=== PATIENT | male | born 1985 | race Caucasian/White ===

== ENCOUNTER → 2021-07-19 | Outpatient (CLI) | payer SELFPAY ==
--- NOTE | 2021-07-19 13:00 | VAS_PTH ---
PATIENT: JOHNATHAN MCNAMARA LOC: [facility] U#:[id number] AGE/SX: 36/M ROOM: RE07/19/[address]: Dr. Bhargav De Santiago MD : 1985 BED: DIS: 07/19/2021 SPEC #: [id number] RECD: 07/19/21 13:42 STATUS: DOMENICO REEstela #: [id number] TIMA: 07/19/21 13:[address]: Bhargav De Santiago DEPT: SURGICAL PATHOLOGY RECD BY: Fatemeh Denise ENTERED: 07/20/21 08:43 SP TYPE: VAS OTHR DR: Dr. Howie Sandoval MD Tissues: A - Vas deferens, NOS B - Vas deferens, NOS Procedures: Surgery Specimen Level II HEADER OPERATION: Bilateral partial vasectomy PRE-OP DIAGNOSIS: Sterilization TISSUE SUBMITTED: A ? Right vas deferens, B ? Left vas deferens MICROSCOPIC DIAGNOSIS A. Right vas deferens, segmental vasectomy: Complete segment of vas deferens with no pathologic change. B. Left vas deferens, segmental vasectomy: Complete segment of vas deferens with no pathologic change. AM:matt 07/23/2021 MICROSCOPIC DESCRIPTION Slides are reviewed. GROSS DESCRIPTION A - Received is one container designated right vas deferens. The specimen consists of a tubular segment of bear soft tissue measuring 0.5 cm in length and 0.2 cm in diameter. The specimen is sectioned and submitted entirely in one cassette. B - Received is one container designated left vas deferens. The specimen consists of a tubular segment of bear soft tissue measuring 0.7 cm in length and 0.2 cm in diameter. The specimen is sectioned and submitted entirely in one cassette. / SJ:matt 07/20/21 TC:4 CPT: 02043 x2
== END | disposition home or self-care (01) ==
LOC: LABSPEC 13:53
PROVIDERS: PCP Family Medicine; Referring Provider Surgery; Visit Provider Surgery
DX: Z30.2 Encounter for sterilization (principal)
CPT/HCPCS: 88302

== ENCOUNTER 2021-11-26 12:30 | Outpatient (CLI) | payer SELFPAY ==
[2021-11-28 14:21] LABS: Semen Analysis Post Vas REVIEWED
== END 2021-11-26 23:59 | disposition home or self-care (01) ==
LOC: LABSPEC 12:30
PROVIDERS: PCP Family Medicine; Referring Provider Surgery; Visit Provider Surgery
DX: Z30.09 Encounter for other general counseling and advice on contraception (principal)
CPT/HCPCS: 89321

== ENCOUNTER → 2022-12-03 | Outpatient (CLI) | payer OTHER, SELFPAY ==
--- NOTE | 2022-12-03 14:24 | RAD_ITS ---
EXAM: XR LEFT FINGERS, 2 OR MORE VIEWS CLINICAL INDICATION: mass ulnar aspect left thumb -- had previous injury with a foreign body TECHNIQUE: Frontal, lateral and oblique views of the fingers of the left hand. This report was created using [employer] report generation technology. COMPARISON: None. FINDINGS: BONES/JOINTS: Joint spaces are maintained. No acute fracture. No subluxation. Normal alignment. No sclerotic or destructive changes observed. No underlying bony abnormalities. SOFT TISSUES: Focal soft tissue mass along the palmar/ulnar aspect of the first digit distally. No soft tissue swelling or gas. No radiopaque foreign bodies. RAD/Finger(s) Min 2 Views IMPRESSION: 1. Focal soft tissue mass along the ventral/ulnar aspect of the first digit distally. 2. No acute or healing fracture or malalignment. 3. No radiopaque foreign body. Electronically Signed: Mihcael Craven MD at 2:22 EST ,
== END | disposition home or self-care (01) ==
LOC: RAD 14:15
PROVIDERS: PCP Family Medicine; Visit Provider Surgery
DX: R22.32 Localized swelling, mass and lump, left upper limb (principal); M60.242 Foreign body granuloma of soft tissue, not elsewhere classified, left hand; S69.92XS Unspecified injury of left wrist, hand and finger(s), sequela
CPT/HCPCS: 73140

== ENCOUNTER 2022-12-24 07:59 | Day surgery (SDC) | payer OTHER, SELFPAY ==
--- NOTE | 2022-12-23 20:15 | PCM.HP.BLA ---
History and Physical Date of Admission: 12/24/22 HISTORY OF PRESENT ILLNESS 37 year old man presents with a soft tissue mass ulnar aspect left thumb by paronychium that has increased in size over last several months.? He states about 5 years ago he sustained an injury from a piece of metal that he was able to pull out. Initially, he sustained no ill effects from the incident and did not have it x-rayed at the time.? He denies numbness.? He denies recent infection. ? He denies any drainage.? Patient is right hand dominant.? There is some mild discomfort when he bumps it.? He presents at this time for further evaluation and treatment. PAST MEDICAL HISTORY Foreign body granuloma of soft tissue of left hand Sterilization consult Subcutaneous mass of left thumb Unspecified injury of left wrist, hand and finger(s), sequela PAST SURGICAL HISTORY History of tonsillectomy History of vasectomy (~06/2021) ALLERGIES No Known Allergies MEDICATIONS None. FAMILY HISTORY Mother - Breast cancer, Cancer Father - Diabetes, Cancer SOCIAL HISTORY Smoking Status:? Never smoker alcohol intake:? never substance use type:? does not use REVIEW OF SYSTEMS General - Denies fever, fatigue, and weight loss. Eyes - Denies cataracts and glaucoma. ENT - Denies nasal congestion and sore throat. Endocrine - Denies excessive thirst and urination. Skin - Denies skin cancer.? Has enlarging soft tissue mass ulnar aspect left thumb by the paronychium. Musculoskeletal - Denies joint pain, joint stiffness, weakness of muscles and joints, back pain, and arthritis. Neuro - Denies headaches. Cardiovascular - Denies chest pain, fatigue, and shortness of breath with exertion. Psych - Denies anxiety and depression. Respiratory - Denies chronic cough and shortness of breath. Gastrointestinal - Denies nausea, vomiting, diarrhea, and constipation. Hematologic - Denies abnormal bruising and bleeding. Genitourinary - Denies hematuria and urinary frequency. PHYSICAL EXAMINATION General - Alert and Oriented. HEENT - PERRL. EOMI.? Throat is clear. Neck - Supple and nontender.? Lungs - Clear to auscultation. Heart - Regular rate and rhythm. Abdomen - Soft and nondistended. Extremities - FROM. No axillary adenopathy.? Radial pulses are palpable. ? Patient is right hand dominant.? On the ulnar aspect left thumb by the paronychium is a soft tissue mass.? It measures 2 cm. ? No ulceration.? Mass is nontender.? No evidence of infection.? Neuro - CN II-XII grossly intact. Psych - Normal mood and affect. ASSESSMENT 1.? 2 cm soft tissue mass ulnar aspect left thumb by the paronychium. 2.? Late effect injury left thumb. 3.? Foreign body granuloma soft tissue left thumb. PLAN Patient has an enlarging soft tissue mass ulnar aspect left thumb by the paronychium.? He states there was an injury in the past.? It was not x-rayed.? Will obtain an x-ray to look for any residual foreign body. If the x-ray shows some bony abnormality, then will obtain an MRI. X-ray was done on 12/03/22. It showed Focal soft tissue mass along the ventral/ulnar aspect of the first digit distally. No acute or healing fracture or malalignment. No radiopaque foreign body. Fine pinch involves the ulnar aspect of the thumb and the radial aspect of the index finger.? As the soft tissue mass grows, it can affect fine pinch. Being where it is on his thumb, even though it's his nondominant hand, it is recommended to have this soft tissue mass excised and sent to Pathology for analysis to rule out carcinoma.? With a history of an injury, will also send some tissue to Microbiology for culture.? A positive culture will necessitate antibiotic therapy. Patient would like to have this done under local anesthesia without sedation.? That can be done with a digital metacarpal block under digital tourniquet control. Patient was informed of the risks and complications of the procedure including alternatives to surgery.? These were discussed with the patient personally.? Patient voices understanding and wishes to proceed. Some of the risks and complications were included in a form from the [employer]. Some of the risks and complications that were discussed included but were not inclusive of failure to diagnose including symptom relief, pain, infection, numbness, stiffness, loss of digit, RSD (CRPS), need for further surgery, contracture, and wound healing problems. Assessment & Plan Assessment/Plan (1) Subcutaneous mass of left thumb: (2) Unspecified injury of left wrist, hand and finger(s), sequela: (3) Foreign body granuloma of soft tissue of left hand:
[2022-12-24 08:28] VITALS: BP 124/70; PULSE 65; RESP 16; TEMP 36.4; O2SAT 100; BMI 24.4
[2022-12-24] MEDS: Cefadroxil 500 MG CAPSULE PO (08:36)
--- NOTE | 2022-12-24 09:00 | DEB_PTH ---
PATIENT: JOHNATHAN MCNAMARA [place] [facility] [place][id number] AGE/SX: 37/M ROOM: RE12/24/[address]: Dr. Augie Sahni MD : 1985 BED: DIS: 12/24/2022 SPEC #: [id number] RECD: 12/24/22 11:32 STATUS: DOMENICO REEstela #: [id number] TIMA: 12/24/22 09:[address]: Augie Sahni DEPT: SURGICAL PATHOLOGY RECD BY: Fatemeh Denise ENTERED: 12/24/22 12:20 SP TYPE: FABIEN CRUZ DR: Dr. Howie Sandoval MD Tissues: Soft tissues, NOS Procedures: Surgery Specimen Level III HEADER OPERATION: Excision soft tissue mass ulnar aspect thumb by paronychium PRE-OP DIAGNOSIS: Subcutaneous mass of left thumb; injury of left wrist, hand and fingers; foreign body granuloma of soft tissue of left hand TISSUE SUBMITTED: Debrided soft tissue mass of ulnar aspect of thumb by paronychium left MICROSCOPIC DIAGNOSIS Soft tissue mass ulnar aspect of left thumb, excision: Consistent with ruptured epidermal inclusion cyst with chronic inflammation, histiocytic reaction and foreign body giant cell reaction. NOAH:matt 12/25/2022 MICROSCOPIC DESCRIPTION Slides are reviewed. GROSS DESCRIPTION Received in fixative is one container labeled with the patient's name and designated debrided soft tissue mass of ulnar aspect of thumb by paronychium left. The specimen consists of two C-shaped pieces of skin measuring 1.5 and 1.7 cm in length and 0.2 cm in width and 0.1 cm in thickness. Also present in the container is a bear, cystic nodule measuring 1.5 x 1.2 x 1.0 cm. This is filled with bear-white cheesy material. The cystic nodule is serially sectioned. The entire specimen is submitted in one cassette. / NOAH:matt 12/24/2022 TC:5 CPT: 35033
[2022-12-24] MEDS: Lidocaine 1% /Epi 1:100 (20ml) 20 ML Vial (09:18)
[2022-12-24] MEDS: Mupirocin Ointment 22gm Tube 1 APPLIC (10:06)
--- NOTE | 2022-12-24 10:37 | PCM.OPRPT ---
Problems Associated Problem List Diagnoses (1) Subcutaneous mass of left thumb: (2) Unspecified injury of left wrist, hand and finger(s), sequela: (3) Foreign body granuloma of soft tissue of left hand: Report of Operation Date of Procedure: 12/24/22 Pre-Operative Diagnosis: 1. 2 cm soft tissue mass ulnar aspect left thumb by the paronychium. 2. Late effect injury left thumb. 3. Foreign body granuloma soft tissue left thumb. Post-Operative Diagnosis: Same. Surgery/Procedure Performed:: Excision 2 cm soft tissue mass ulnar aspect left thumb by the paronychium. Description of Surgical Findings:: 37 year old man presents with a soft tissue mass ulnar aspect left thumb by paronychium that has increased in size over last several months.? He states about 5 years ago he sustained an injury from a piece of metal that he was able to pull out. Initially, he sustained no ill effects from the incident and did not have it x-rayed at the time.? He denies numbness.? He denies recent infection. ? He denies any drainage.? Patient is right hand dominant.? There is some mild discomfort when he bumps it.? He had a recent x-ray on 12/03/22.? It showed Focal soft tissue mass along the ventral/ulnar aspect of the first digit distally.? No acute or healing fracture or malalignment. ? No radiopaque foreign body. Patient was informed of the risks and complications of the procedure including alternatives to surgery. These were discussed with the patient personally. Patient voices understanding and wishes to proceed. Some of the risks and complications were included in a form from the [employer]. Some of the risks and complications that were discussed included but were not inclusive of failure to diagnose including symptom relief, pain, infection, numbness, stiffness, loss of digit, RSD (CRPS), need for further surgery, contracture, and wound healing problems. Total tourniquet time - 23 minutes. Surgeon: Augie Sahni MD slotter operator helper: None Type of Anesthesia: Local (xylocaine with epinephrine digital metacarpal block.) Anesthesiologist: None. Specimen's removed: Soft tissue mass ulnar aspect left thumb by the paronychium to Pathology and Microbiology. Drains: None. Estimated Blood Loss (mL): 2. Description of Procedure: Patient was taken to OR in supine position. The left hand was prepped and draped in the usual fashion. SCD's were placed for DVT prophylaxis. Perioperative antibiotics were given orally since the procedure is under local anesthesia. The left thumb was infiltrated with xylocaine and epinephrine with a digital metacarpal block. After waiting 5 minutes for the anesthetic to take effect, the digital tourniquet was placed at the base of the thumb. I made an oblique incision over the mass with care to avoid the contact point on the thumb with the index finger during fine pinch. A scar within this contact point can potentially have pain issues with fine pinch. Dissection was carried into the subcutaneous tissue. The mass was seen. It was well-encapsulated. It was sharply dissected free as it extended very close to the ulnar digital nerve of the thumb. The digital nerve was seen and preserved. When it was removed, an incision was made to see what the inside looked like. There was thick sebaceous tissue. Half the mass appeared to be solid in nature. No foreign body was seen but I doubted it would still be present. Most likely the residual granulomatous scar tissue would be present which could explain that half the mass appeared solid in nature. A small sample of tissue was sent to Microbiology for culture. A positive culture will necessitate antibiotic therapy. The rest of the specimen was sent to Pathology for analysis to rule out carcinoma. I irrigated the wound with saline. The tourniquet was released after 23 minutes. Hemostasis obtained with gauze compression and electrocautery. There was some redundant skin due to the large size of the mass. A wedge of skin was excised from both sides of the wound. The wound was then closed with 5-0 Prolene simple interrupted sutures. Antibiotic ointment was applied to the incision followed by 2x2 gauze and a 2 inch Phu wrap. Patient tolerated the procedure well and was sent back to [employer] Director in satisfactory condition since the surgery was done under local anesthesia. If the culture is positive, will start antibiotics. Patient was not interested in pain medication and would take Tylenol. I told him no Ibuprofen for 2 days. Patient will followup in 2 weeks for a wound check and for removal of the sutures. During the first week I will call him with the Pathology results and the Microbiology results. Grafts/Implants Used: None. Procedure Start Time: 09:36 Procedure Stop Time: 10:12 Complications None. Admit VTE Documentation VTE Present on Admission: No VTE Mechan Device Prophylaxis: None (It was a short case under local anesthesia.) VTE Pharm Prophylaxis ordered?: No Reason prophylaxis not ordered:: Treatment Not Indicated (It was a short case under local anesthesia.) Addendum Addendum: Surgery Charges CPT - 33985 ICD-10 - R22.32, S69.92xS, M60.242
--- NOTE | 2022-12-24 10:39 | DCINST_ITS ---
Discharge Instructions Diet Discharge Diet: No restrictions Activity Discharge Activity: May Drive (if not taking narcotics for pain.), May Shower (wear plastic bag over left hand when showering.) and - (elevate left hand when sitting.) May shower in (days): 1 (wear plastic bag over left hand when showering.) May resume sexual activity in: No Restrictions Weight Bearing Status: Weight bearing as tolerated Keep extremity elevated above heart level: Left Arm Dressing / Incision Call your doctor if your incision/area has: Continuous Slow Oozing, Sudden Increased Bleeding, Increased Pain/ Swelling, Increased Redness, Foul Smelling Discharge and Swelling at the incision site Call your doctor if you observe: Fever of 101 or Higher, Coldness, Increased Pain, Shortness of breath, Chest pain, Calf discomfort and Uncontrolled pain Suture Line Care: - (after operative dressing removed, apply antibiotic ointment daily to suture line until sutures removed.) Remove Dressing in: 1 week (If he plays basketball end of week, he may remove the operative dressing and apply a band-aid when active. May remove band-aid in the evening.) Cleanse incision/area with: Keep Dressing Clean & Dry (wear plastic bag over left hand when showering.) and - (after operative dressing removed, may get incision wet with soap and water.) Follow Up Care Please Follow Up With: Augie Sahni MD When: 2 weeks for suture removal. call [phone] for appt. If any questions or concerns, may followup in one week. Test Results: Test results from this visit will be discussed in further detail at your follow- up appointment, if applicable. Discharge Plan Admission Primary Reason for Your Visit: excision soft tissue mass ulnar aspect left thumb near paronychium Attending Provider: Augie Sahni Primary Care Provider: Howie Sandoval Instructions Additional Instructions / Restrictions: Patient may use Extra Strength Tylenol for pain. He may also use Ibuprofen for pain after 2 days. If the operative culture is positive, will start antibiotics. Discharge Orders/Prescriptions Prescriptions: No Action NK Referrals / Follow Up: Howie Sandoval MD [Primary Care Provider] - Augie Sahni MD [Med Staff - Active Staff] - (followup 2 weeks for suture removal.) Disposition Disposition (needs filled in before D/C Order can be placed): Home, Self Care
== END 2022-12-24 11:00 | disposition home or self-care (01) ==
LOC: SDC 08:00 → AC 08:01
PROVIDERS: PCP Family Medicine; Referring Provider Surgery; Visit Provider Surgery
PROC: (CPT 26111; principal; 2022-12-24 08:45)
DX: M60.242 Foreign body granuloma of soft tissue, not elsewhere classified, left hand (principal); S69.92XS Unspecified injury of left wrist, hand and finger(s), sequela; X58.XXXS Exposure to other specified factors, sequela; L72.0 Epidermal cyst
CPT/HCPCS: 26111; 87070; 87075; 87102; 87176; 87205; 87206; 88304